=== PATIENT | female | born 2000 | race Hispanic/Latino ===

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

== ENCOUNTER 2018-08-03 18:14 | Emergency (ER) | payer MEDICAID ==
[2018-08-03] MEDS ORDERED: KETOROLAC TROMETHAMINE 60 MG/2 ML VIAL IV ONE (18:15)
== END 2018-08-03 20:14 | disposition home or self-care (01) ==
LOC: EDH 18:14
DX: J20.9 Acute bronchitis, unspecified (principal); M94.0 Chondrocostal junction syndrome [Tietze]
CPT/HCPCS: 36415; 84484; 84702; 93005; 96372; 99284; J1885

== ENCOUNTER 2019-01-13 22:41 | Emergency (ER) | payer MEDICAID, OTHER ==
[2019-01-13 23:36] LABS: APPEARANCE,URINE Turbid (CLEAR); BILIRUBIN,URINE Negative (NEGATIVE); COLOR,URINE Yellow (YELLOW); GLUCOSE, URINE (UA) Negative (NEGATIVE); KETONES,URINE Negative (NEGATIVE); LEUKOCYTE ESTERASE ,URINE Trace (NEGATIVE); NITRATE,URINE Negative (NEGATIVE); OCCULT BLOOD,URINE Negative (NEGATIVE); PROTEIN,URINE Negative (NEGATIVE)
[2019-01-13 23:39] LABS: HCG,QUAL RESULT NEGATIVE (NEGATIVE)
[2019-01-13 23:44] LABS: AMORPHOUS SEDIMENT,UR Many /LPF (None Seen); BACTERIA,URINE None Seen /HPF (None Seen); RBC,URINE None Seen /HPF (0-1); SQUAMOUS EPITHELIAL CELL,UR Few /HPF (0-2); WBC,URINE None Seen /HPF (0-1)
[2019-01-13] MEDS ORDERED: ACETAMINOPHEN EXTRA STRENGTH 500 MG TABLET ONE (23:55)
[2019-01-13] MEDS ORDERED: IBUPROFEN 600 MG TABLET ONE (23:55)
[2019-01-13] MEDS ORDERED: CYCLOBENZAPRINE HCL 10 MG TABLET ONE (23:56)
== END 2019-01-14 00:11 | disposition home or self-care (01) ==
LOC: EDH 22:41
DX: N94.6 Dysmenorrhea, unspecified (principal)
CPT/HCPCS: 81001; 81025

== ENCOUNTER 2019-06-16 03:45 | Emergency (ER) | payer OTHER ==
[2019-06-16] MEDS ORDERED: DIPHENHYDRAMINE HCL 25 MG CAPSULE ONE (04:05)
== END 2019-06-16 05:04 | disposition home or self-care (01) ==
LOC: EDH 03:45
DX: L50.9 Urticaria, unspecified (principal); L29.9 Pruritus, unspecified
CPT/HCPCS: 81025; 99283; Q0163

== ENCOUNTER 2019-09-05 23:40 | Emergency (ER) | payer OTHER ==
[2019-09-05] MEDS ORDERED: ONDANSETRON ODT 4 MG TAB ONE (23:59)
[2019-09-06 00:47] LABS: BILIRUBIN,URINE Negative (NEGATIVE); COLOR,URINE Yellow (YELLOW); GLUCOSE, URINE (UA) TRACE mg/dL (NEGATIVE); HCG,QUAL RESULT NEGATIVE (NEGATIVE); KETONES,URINE Negative (NEGATIVE); LEUKOCYTE ESTERASE ,URINE Negative (NEGATIVE); NITRATE,URINE Negative (NEGATIVE); OCCULT BLOOD,URINE Negative (NEGATIVE); PH,URINE 8.5 (5.0-8.0); PROTEIN,URINE Negative (NEGATIVE)
[2019-09-06 00:48] LABS: APPEARANCE,URINE CLOUDY (CLEAR)
[2019-09-06] MEDS ORDERED: LIDOCAINE HCL 2% VISCOUS 15 ML UDCUP ONE (00:54)
[2019-09-06] MEDS ORDERED: MAGNESIUM HYDROXIDE 30 ML/UDCUP ONE (00:54)
[2019-09-06 01:12] LABS: AMORPHOUS SEDIMENT,UR Many /LPF (None Seen); BACTERIA,URINE Moderate /HPF (None Seen); RBC,URINE 0-1 /HPF (0-1); WBC,URINE 0-1 /HPF (0-1)
== END 2019-09-06 00:59 | disposition home or self-care (01) ==
LOC: EDH 23:40
DX: B34.9 Viral infection, unspecified (principal); Z72.0 Tobacco use
CPT/HCPCS: 81001; 81025; 87880

== ENCOUNTER 2021-07-25 07:59 | Emergency (ER) | payer SELFPAY ==
[~2021-07-25] VITALS: Ht 162.6 cm; Wt 96.6 kg
[2021-07-25 08:29] VITALS: BP 137/102
[2021-07-25] MEDS ORDERED: METF-446 PO (08:29)
[2021-07-25] MEDS ORDERED: SULF1TAB42 PO (08:29)
== END 2021-07-25 08:41 | disposition home or self-care (01) ==
LOC: EDH 07:59
DX: L02.211 Cutaneous abscess of abdominal wall (principal); E11.9 Type 2 diabetes mellitus without complications
CPT/HCPCS: 82948

== ENCOUNTER 2022-02-28 16:28 | Emergency (ER) | payer OTHER ==
[~2022-02-28] VITALS: Ht 165.1 cm; Wt 98.4 kg
[~2022-02-28 16:28] MED LIST changes: +METF-446 PO; +SULF1TAB42 PO
[2022-02-28 16:50] LABS: APPEARANCE,URINE SL CLOUDY (CLEAR); BILIRUBIN,URINE NEGATIVE (NEGATIVE); COLOR,URINE YELLOW (YELLOW); GLUCOSE, URINE (UA) >=1000 mg/dL (NEGATIVE); KETONES,URINE NEGATIVE (NEGATIVE); LEUKOCYTE ESTERASE ,URINE NEGATIVE (NEGATIVE); NITRATE,URINE NEGATIVE (NEGATIVE); OCCULT BLOOD,URINE MODERATE (NEGATIVE); PROTEIN,URINE NEGATIVE (NEGATIVE); UROBILINOGEN,URINE 0.2 mg/dL (0.2-1.0)
[2022-02-28 17:01] LABS: AMORPHOUS SEDIMENT,UR Few /LPF (None Seen); BACTERIA,URINE Few /HPF (None Seen); MUCUS,URINE Few LPF (None Seen); SQUAMOUS EPITHELIAL CELL,UR Few /HPF (0-2); WBC,URINE 0-1 /HPF (0-1)
[2022-02-28 17:16] LABS: BASOPHILS % (AUTO) 0.3 % (0.0-5.0); EOSINOPHILS % (AUTO) 3.1 % (0.0-8.0); HEMATOCRIT 41.6 % (36-48); LYMPHOCYTES % (AUTO) 28.6 % (21.0-51.0); MEAN CORPUSCULAR HGB CONC 35.1 g/dL (32.0-36.0); MEAN CORPUSCULAR VOLUME 79.8 fL (79-99); MONOCYTES % (AUTO) 4.2 % (3.0-13.0); NEUTROPHILS % (AUTO) 63.5 % (40.0-77.0); PLATELET COUNT (AUTO) 306 K/uL (130-400); RED BLOOD CELL COUNT(AUTO) 5.21 MIL/uL (4.00-5.50); RED CELL DISTRIBUTION WIDTH 12.4 % (11.0-15.5)
[2022-02-28] MEDS ORDERED: CEFTRIAXONE 1G VIAL IM ONE (17:30)
[2022-02-28 17:55] LABS: ALBUMIN 3.4 g/dL (3.5-5.0); CREATININE 0.5 mg/dL (0.5-1.5); POTASSIUM 3.7 mmol/L (3.5-5.1); TOTAL PROTEIN, SERUM 7.7 g/dL (6.0-8.3)
[2022-02-28 18:50] VITALS: BP 109/72
== END 2022-02-28 19:11 | disposition home or self-care (01) ==
LOC: EDH 16:28
DX: O20.0 Threatened abortion (principal); O23.41 Unspecified infection of urinary tract in pregnancy, first trimester; E11.65 Type 2 diabetes mellitus with hyperglycemia; Z79.84 Long term (current) use of oral hypoglycemic drugs; Z3A.01 Less than 8 weeks gestation of pregnancy
CPT/HCPCS: 99284; 76801; 80053; 84702; 85025; 86900; 86901; 81001; 36415; 96372; J0696

== ENCOUNTER 2022-10-02 09:12 | Emergency (ER) | payer OTHER ==
[~2022-10-02] VITALS: Ht 165.1 cm; Wt 96.6 kg
[2022-10-02 09:17] VITALS: BP 118/74
[2022-10-02 10:04] LABS: APPEARANCE,URINE CLEAR (CLEAR); BILIRUBIN,URINE NEGATIVE (NEGATIVE); COLOR,URINE LIGHT-YELLOW (YELLOW); GLUCOSE, URINE (UA) >=1000 mg/dL (NEGATIVE); KETONES,URINE 20 mg/dL (NEGATIVE); LEUKOCYTE ESTERASE ,URINE 25 Leu/uL (NEGATIVE); NITRATE,URINE NEGATIVE (NEGATIVE); OCCULT BLOOD,URINE NEGATIVE (NEGATIVE); PROTEIN,URINE NEGATIVE (NEGATIVE); UROBILINOGEN,URINE 0.2 mg/dL (0.2-1.0)
[2022-10-02 10:08] LABS: HCG,QUALITATIVE URINE NEGATIVE (NEGATIVE)
[2022-10-02 10:10] LABS: BACTERIA,URINE RARE /HPF (None Seen); MUCUS,URINE RARE LPF (None Seen); SQUAMOUS EPITHELIAL CELL,UR MOD /HPF (0-2)
[2022-10-02 10:33] LABS: BASOPHILS % (AUTO) 0.3 % (0.0-5.0); EOSINOPHILS % (AUTO) 2.8 % (0.0-8.0); HEMATOCRIT 41.4 % (36-48); LYMPHOCYTES % (AUTO) 23.7 % (21.0-51.0); MEAN CORPUSCULAR HEMOGLOBIN 27.4 pg (27.0-33.0); MEAN CORPUSCULAR HGB CONC 34.1 g/dL (32.0-36.0); MEAN CORPUSCULAR VOLUME 80.4 fL (79-99); MONOCYTES % (AUTO) 5.1 % (3.0-13.0); NEUTROPHILS % (AUTO) 67.8 % (40.0-77.0); PLATELET COUNT (AUTO) 343 K/uL (130-400); RED BLOOD CELL COUNT(AUTO) 5.15 MIL/uL (4.00-5.50); RED CELL DISTRIBUTION WIDTH 12.4 % (11.0-15.5); WHITE BLOOD COUNT (AUTO) 10.9 K/uL (4.8-10.8)
[2022-10-02 10:50] LABS: CREATININE 0.7 mg/dL (0.5-1.5)
[2022-10-02 10:55] LABS: ALBUMIN 3.5 g/dL (3.5-5.0); TOTAL PROTEIN, SERUM 7.7 g/dL (6.0-8.3)
[2022-10-02] MEDS ORDERED: LACTATED RINGERS 1000ML 1,000 ML IV ONE (12:30)
[2022-10-02 12:41] LABS: ABG OXYGEN SATURATION 65.8 % (95.0-99.0); BASE EXCESS,VENOUS BLOOD GAS 1.7 (-2.0-3.0); HCO3,VENOUS BLOOD GAS 27.5 (21.0-28.0); PCO2,VENOUS BLOOD GAS 47 (32-45); PH,VENOUS BLOOD GAS 7.382 (7.350-7.450)
== END 2022-10-02 14:53 | disposition home or self-care (01) ==
LOC: EDH 09:12
DX: R51.9 Headache, unspecified (principal); R73.9 Hyperglycemia, unspecified; Z79.899 Other long term (current) drug therapy; Z79.84 Long term (current) use of oral hypoglycemic drugs; Z20.822 Contact with and (suspected) exposure to COVID-19
CPT/HCPCS: 99283; 96360; 87635; 96361; 80053; 82803; 85025; 87088; 87804 ×2; 82010; 81001; 81025; 36415; 36600; C9803; J7120